=== PATIENT | male | born 1980 | race American Indian/Alaskan Native ===

== ENCOUNTER 2021-08-21 14:40 | Emergency (ER) | payer SELFPAY ==
[2021-08-21] MEDS ORDERED: LIDOCAINE-MPF (1%) 10 MG/1 ML VIAL 5 ML INFILTRATI ONE (15:16)
[2021-08-22 16:34] VITALS: BP 109/66
--- NOTE | 2021-08-22 16:36 | Emergency Department Report ---
ED Male HPI - General Chief complaint: Urogenital-Male Stated complaint: TRANSMITTED DISEASE Time Seen by Provider: 08/21/21 15:16 Source: patient Mode of arrival: Ambulatory Limitations: No Limitations - History of Present Illness Initial comments: The patient was evaluated in the emergency department for symptoms described in the history of present illness. He/she was evaluated in the context of the global COVID-19 pandemic, which necessitated consideration that the patient might be at risk for infection with the virus that causes COVID-19. In stitutional protocols and algorithms that pertain to the evaluation of patients at risk for COVID-19 are in a state of rapid change based on information released by regulatory bodies including the CDC and federal and state organizations. These policies and algorithms were followed during the patient's care in the emergency department. Please note that these policies, procedures and recommendations changed on a rapid basis. 40-year-old -[place]ian male presents to the emergency room concern for transmitted disease. Patient states that he woke up this morning with penile discharge. Patient states he had unprotected intercourse. Denies any testicular pain or testicular swelling no dysuria no back pain no fever or chills. MD Complaint: penile discharge -: This morning Location: penis Radiation: none Quality: burning Consistency: intermittent Improves with: none Worsens with: urination discharge. denies: swelling, mass, urinary retention, fever, nausea/vomiting - Related Data Sexually active: Yes (Unprotected) Previous Rx's Medication Instructions Recorded Last Taken Type Doxycycline Hyclate [Doxycycline 100 mg PO Q12HR 7 Days #14 tab 08/21/21 Unknown Rx Hyclate TAB] Allergies Allergy/AdvReac Type Severity Reaction Status Date / Time No Known Allergies Allergy Unverified 08/21/21 15:07 ED Review of Systems ROS: Stated complaint: TRANSMITTED DISEASE Other details as noted in HPI Comment: All other systems reviewed and negative ED Past Medical Hx - Medications Home Medications: Home Medications Medication Instructions Recorded Confirmed Last Taken Type Doxycycline Hyclate [Doxycycline 100 mg PO Q12HR 7 Days #14 tab 08/21/21 Unknown Rx Hyclate TAB] ED Physical Exam - General Limitations: No Limitations General appearance: alert, in no apparent distress - Head Head exam: Present: atraumatic, normocephalic - Eye Eye exam: Present: normal appearance - ENT ENT exam: Present: mucous membranes moist - Neck Neck exam: Present: normal inspection - Respiratory Respiratory exam: Present: normal lung sounds bilaterally. Absent: respiratory distress - Cardiovascular Cardiovascular Exam: Present: regular rate, normal rhythm. Absent: systolic murmur, diastolic murmur, rubs, gallop - GI/Abdominal GI/Abdominal exam: Present: soft, normal bowel sounds - Rectal Rectal exam: Present: deferred - Extremities Exam Extremities exam: Present: normal inspection - Back Exam Back exam: Present: normal inspection - Neurological Exam Neurological exam: Present: alert, oriented X3, normal gait - Psychiatric Psychiatric exam: Present: normal affect, normal mood - Skin Skin exam: Present: warm, dry, intact, normal color. Absent: rash ED Medical Decision Making - Medical Decision Making 40-year-old -[place]ian male presents to the emergency room concern for transmitted disease. Patient states that he woke up this morning with penile discharge. Patient states he had unprotected intercourse. Denies any testicular pain or testicular swelling no dysuria no back pain no fever or chills. Patient will be treated for STD with Rocephin 1 mg IM and a prescription for doxycycline for the next 7 days. Discussed with patient to follow-up with health department for full STD screening. Critical care attestation.: If time is entered above; I have spent that time in minutes in the direct care of this critically ill patient, excluding procedure time. ED Disposition Clinical Impression: Concern about STD in male without diagnosis Disposition: 01 HOME / SELF CARE / HOMELESS Is pt being admited?: No Does the pt Need Aspirin: No Condition: Stable Instructions: Safe Sex Additional Instructions: Please complete antibiotics as prescribed. Please inform your sexual partner that you have been tested and treated. Please refrain from intercourse for 2 weeks. Follow-up at the health department for full STD evaluation and treatment. Prescriptions: Doxycycline Hyclate [Doxycycline Hyclate TAB] 100 mg PO Q12HR 7 Days #14 tab Referrals: [facility] Depart [Outside] - 3-5 Days Forms: Work/School Release Form(ED)
== END 2021-08-21 16:15 | disposition home or self-care (01) ==
LOC: ED 14:40
DX: Z20.2 Contact with and (suspected) exposure to infections with a predominantly sexual mode of transmission (principal); R36.9 Urethral discharge, unspecified; Z79.899 Other long term (current) drug therapy
CPT/HCPCS: 96372; 99281; J0696